=== PATIENT | female | born 1960 | race Caucasian/White ===

== ENCOUNTER 2019-10-30 08:33 | Outpatient (CLI) | payer OTHER ==
--- NOTE | 2019-10-30 16:04 | CT ---
EXAM: CT calcium score HISTORY: Hypertension COMPARISON: None TECHNIQUE: Multiple contiguous axial images were obtained a CT of the heart without contrast. FINDINGS: The CT images show no suspicious pulmonary nodules. No hilar or mediastinal lymphadenopathy are seen. The patient's total Agatston calcium score is 0. IMPRESSION: Negative test. Findings are consistent with a low risk of having a cardiovascular event i n the next 5 years.
== END 2019-10-30 08:34 | disposition home or self-care (01) ==
LOC: BICCT 08:33
PROVIDERS: ATTEND Family Medicine
DX: I10 Essential (primary) hypertension (principal)
CPT/HCPCS: 75571